=== PATIENT | female | born 1980 | race Caucasian/White ===

== ENCOUNTER 2023-07-08 16:35 | Emergency (ER) | payer BC ==
[2023-07-08 17:49] VITALS: BP 109/56; PULSE 69; RESP 18; TEMP 98.5; BMI 31.8
== END 2023-07-08 19:25 | disposition home or self-care (01) ==
LOC: JER 16:35 → EDBD 16:35 → JER 19:25
DX: R05.9 Cough, unspecified (principal); R04.2 Hemoptysis; Z20.822 Contact with and (suspected) exposure to COVID-19
CPT/HCPCS: 0241U-QW; 71046-TC-FY; 99284-25